=== PATIENT | female | born 1965 | race Caucasian/White ===

== ENCOUNTER 2017-06-19 10:48 | Emergency (ER) | payer SELFPAY ==
--- NOTE | ~2017-06-19 | ER ---
PATIENT'S NAME: MA[facility]IZIO [facility] AGE: 52 Y [address] ROOM: [place] [id number] LOCATION: [facility] ADMIT DATE: 06/19/2017 ER/Outpatient Report DISCHARGE DATE: 06/19/2017 FAMILY PHYSICIAN: PHYSICIAN, NO ATTENDING PHYSICIAN: Greg Ontiveros She was put in the consultation room at 10:58. Dr. Ontiveros did order a strep screen. When I arrived at 11:45, I did see her. CHIEF COMPLAINT: Sore throat, runny nose, congestion. HISTORY OF PRESENT ILLNESS: The patient states she has had generalized sore throat, runny nose, and nasal congestion for the past 3 to 4 days. Has not felt feverish. Her cough has been dry. Does have some generalized sinus pressure. ALLERGIES: SHE HAS NO KNOWN ALLERGIES. CURRENT MEDICATIONS: On her chart and reviewed by me. PAST MEDICAL HISTORY: Noninsulin-dependent diabetes, asthma, hypertension, increased cholesterol, gastric reflux, depression. PAST SURGICAL HISTORY: Negative. SOCIAL HISTORY: She reports she smokes 10 to 12 cigarettes per day. Denies use of drugs and alcohol. REVIEW OF SYSTEMS: Negative other than those mentioned in the HPI. PHYSICAL EXAMINATION: VITAL SIGNS: She weighs 96.1 kg, blood pressure is 124/73, pulse of 88, respirations 14, temperature of 98.6, O2 saturation is 96% on room air. GENERAL: She is awake, alert, and oriented x4. SKIN: [place], warm, and dry. RESPIRATIONS: Even and nonlabored. TMs are dull. No fluid is noted. Nasal is boggy. Oropharynx is slightly red posteriorly. No exudate noted. LUNGS: Lung sounds are clear throughout. PATIENT'S NAME: MAURIZIO [facility] AGE: 52 Y [address] ROOM: [place], [place] [address] LOCATION: [facility] ADMIT DATE: 06/19/2017 ER/Outpatient Report DISCHARGE DATE: 06/19/2017 FAMILY PHYSICIAN: PHYSICIAN, NO ATTENDING PHYSICIAN: Greg Ontiveros HEART: Regular rate and rhythm. EMERGENCY DEPARTMENT COURSE: Strep screen was completed, it was negative. Accu-Chek was done, it was 112. IMPRESSION: Viral upper respiratory illness. PLAN: Home, rest, fluids. Tylenol or ibuprofen as needed for discomfort. Encouraged her to monitor her blood sugars and continue her current medications. She is to follow up with her primary provider in the next 2 to 3 days if symptoms persist or worsen. She verbalized understanding. CLEMENTE FANG APRN FOR [facility]/sari /[id number] d: 06/19/172029 t: 06/28/17 1056, OUTPATIENT REPORT
== END 2017-06-19 12:06 | disposition disaster alternative care site (69) ==
LOC: GMED 10:48
DX: J06.9 Acute upper respiratory infection, unspecified (principal); F17.210 Nicotine dependence, cigarettes, uncomplicated; E11.9 Type 2 diabetes mellitus without complications; I10 Essential (primary) hypertension; J45.909 Unspecified asthma, uncomplicated; K21.9 Gastro-esophageal reflux disease without esophagitis; F32.9 Major depressive disorder, single episode, unspecified; E78.00 Pure hypercholesterolemia, unspecified; Z79.899 Other long term (current) drug therapy; Z79.84 Long term (current) use of oral hypoglycemic drugs